=== PATIENT | female | born 1940 | race Two or more races ===

== ENCOUNTER 2021-01-28 17:55 | Emergency (ER) | payer SELFPAY ==
[~2021-01-28] VITALS: Ht 152.4 cm; Wt 75.0 kg
[2021-01-28] MEDS ORDERED: LIDOCAINE HCL/EPINEPHRINE 1%-EPI 1:100,000 20 ML VIAL INFIL NR (18:40)
[2021-01-28] MEDS ORDERED: ACETAMINOPHEN 325MG TABLET PO ONE (18:45)
[2021-01-28] MEDS ORDERED: TETANUS, DIPHTHERIA, PERTUSSIS VAC/PF 0.5ML (>7YR OLD) IM ONE (18:45)
[2021-01-28] MEDS ORDERED: LIDOCAINE HCL/EPINEPHRINE 1%-EPI 1:100,000 10 ML VIAL IJ ONE (18:45)
[2021-01-28] MEDS ORDERED: AMOX-494 MT (19:35)
== END 2021-01-28 20:00 | disposition home or self-care (01) ==
LOC: ER 17:55
DX: S01.511A Laceration without foreign body of lip, initial encounter (principal); I10 Essential (primary) hypertension; M19.90 Unspecified osteoarthritis, unspecified site; F03.90 Unspecified dementia, unspecified severity, without behavioral disturbance, psychotic disturbance, mood disturbance, and anxiety; W01.0XXA Fall on same level from slipping, tripping and stumbling without subsequent striking against object, initial encounter; Y93.89 Activity, other specified; Y92.242 Post office as the place of occurrence of the external cause; Y99.8 Other external cause status
CPT/HCPCS: 12013; 70450; 70486; 90471; 90715; 99285; J3490; Z7610